=== PATIENT | male | born 1975 | race Caucasian/White ===

== ENCOUNTER 2025-04-17 15:25 | Emergency (ER) | payer OTHER, SELFPAY ==
[2025-04-17 15:49] VITALS: BP 125/79
[2025-04-17] MEDS: DECADRON 10 MG PO (18:00)
[2025-04-17] MEDS: ZANAFLEX 4 MG PO (18:00)
--- NOTE | 2025-04-17 19:28 | ED.GENMED ---
History of Present Illness
General
Chief Complaint: Back Pain
Source: patient and spouse
Exam Limitations: none
Time Seen by Provider: 04/17/25 17:04
Nursing documentation reviewed up to this point in time: agreed with
History of Present Illness
History of Present Illness:
49-year-old male presenting to the emergency department today with concerns of back pain neck pain some flashes with vision over the past few months to a year. Occasionally feel [id number] to his right arm but denies any currently. Symptoms
ongoing for a month did have some significant back pain today but it has proved. Pain is only worse with movement and positioning. Denies any change in bowel or bladder function no nausea vomiting or changes in bowel movements.
Review of Systems
Review of Systems
Allergies reviewed?: Yes
All Other Systems: ROS reviewed and negative except as documented in HPI and ROS
Phy Exam
Physical Exam
Physical Exam:
GENERAL: Alert , in no apparent distress
EYE: pupils equal and reactive
NECK: Supple, no significant adenopathy.
ENT: o/p clr, mmm.
CARDIAC: Regular rate and rhythm .
LUNGS: Clear breath sounds bilaterally, no acute respiratory distress, no wheezes/rales/rhonchi
ABDOMEN: Soft, without focal tenderness, no r/g, no cvat
NEUROLOGICAL: Alert and oriented, no focal neuro deficits
SKIN: Warm and dry, skin intact.
MUSCULOSKELETAL: No edema, well perfused.
PSYCH: Normal and appropriate interaction.
Course
Orders/Labs/Results
Orders:
Orders
04/17/25 17:35
Tizanidine [Zanaflex] 4 mg PO NOW STA
04/17/25 17:41
Dexamethasone [Decadron] 10 mg PO NOW STA
04/17/25 18:25
CR Cervical Spine 2 or 3 Vw Urgent
Comment:
Reason For Exam: neck pain
Lumbar Spine, 2 or 3 View [CR Lumbar Spine 2 Or 3 Views] Urgent
Comment:
Reason For Exam: low back pain
Vital Signs
Initial and Last Documented VS:
Initial Vital Signs
Temp Pulse Resp BP Pulse Ox
98.5 F 86 18 125/79 96
04/17/25 15:49 04/17/25 15:49 04/17/25 15:49 04/17/25 15:49 04/17/25 15:49
Last Documented Vital Signs
Temp Pulse Resp BP Pulse Ox
98.5 F 86 18 125/79 96
04/17/25 15:49 04/17/25 15:49 04/17/25 15:49 04/17/25 15:49 04/17/25 15:49
MDM/Problems Addressed
MDM/Problems Addressed:
49-year-old male presenting to the emergency department today with concerns of back pain neck pain pain rating to his right arm this been intermittent over the past year or so. Also sometimes has flashes and floaters in his vision. Here patient
generally well-appearing no neurologic symptoms no change in significant bowel or bladder function. Back pain seems to be mechanical in description with no neurologic or red flag symptoms. Patient was given medications for the back pain including
steroid and muscle relaxer. X-rays without emergent findings. Vital signs normal. No red flags symptoms at this point. Patient vies for close outpatient follow-up. Return precautions given.
*Pulse Oximetry
SaO2: 96
Oxygen Mode of Delivery: Room air
Patient hypoxic: no (96)
*Critical Care Note
Total Time (30-74mins, 75-104mins- exclusive of procedures): Not Applicable
ED Attending Note
-
Portions of this chart may have been created with voice recognition software.� Occasional wrong word or��sound alike� substitutions may have occurred due to the inherent limitations of voice recognition software.
Discharge Plan
Departure
Patient Disposition: Home (Routine Discharge)
Date of Disposition: 04/17/25
Time of Disposition: 19:31
Patient with high blood pressure during this ER visit?: No
Condition: Good
Covid-19: Not Applicable
Discharge Problem:
Back pain, Radicular pain in right arm
Instructions: Low Back Pain (DC)
Prescriptions:
New
tizanidine [Zanaflex] 4 mg capsule
4 mg PO HS PRN (Reason: muscle spasticity) Qty: 7 0RF
prednisone 20 mg tablet
40 mg PO DAILY 3 Days Qty: 6 0RF
No Action
tamsulosin 0.4 MG capsule
0.4 mg PO DAILY Qty: 7 0RF
diclofenac sodium 75 MG tablet,delayed release (DR/EC)
75 mg PO BID Qty: 10 0RF
cyclobenzaprine 10 MG tablet
10 mg PO TIDPRN PRN (Reason: pain) Qty: 12 0RF
Referrals:
Paresh Rodarte MD [Active, Anesthesiology] - Follow up in 5-7 days
Devonte Whaley MD [Active, Ophthalmology] - Follow up in 5-7 days
UNKNOWN - PT DOES,NOT KNOW [Family Provider]
Activity Restrictions/Additional Instructions:
You came to the emergency department today with concerns of back pain pain into your right arm vision changes. Here there is no evidence of life-threatening etiology but you should follow-up closely with a back doctor as well as an eye doctor.
Please follow-up closely over the next week or so. Additionally seeking physical therapy would be beneficial. Additionally take the prescribed steroid as well as muscle laxer to help with symptoms in the meantime. Return for any worsening, new or
concerning symptoms.
Interventions
Interventions:
*Risk Screen - Suicide Last Done: 04/17/25 15:49
*General Assessment Last Done: 04/17/25 15:49
*Neglect/Abuse Screening Last Done: 04/17/25 19:23
*ED- Fall Risk Assessment Last Done: 04/17/25 19:22
*ED COVID-19 Vaccine History Last Done: 04/17/25 19:22
*ED Influenza Vaccine History Last Done: 04/17/25 19:22
ED-Musculoskeletal Assessment Last Done: 04/17/25 19:23
Discharge Date and Time
Print Language: COLOMBIAN
== END 2025-04-17 20:05 | disposition home or self-care (01) ==
LOC: EMR 15:25
PROVIDERS: EMERGENCY PHYSICIAN Emergency Medicine
DX: M54.50 Low back pain, unspecified (principal); M54.10 Radiculopathy, site unspecified
CPT/HCPCS: 99283; 72040; 72100